=== PATIENT | male | born 1955 | race African-American/Black ===

== ENCOUNTER 2019-07-01 13:42 | Emergency (ER) | payer MEDICAID ==
[~2019-07-01] VITALS: Ht 185.4 cm; Wt 98.0 kg
[2019-07-01 17:49] VITALS: BP 149/85
== END 2019-07-01 21:41 | disposition left against medical advice (07) ==
LOC: ER 13:42
DX: Z53.21 Procedure and treatment not carried out due to patient leaving prior to being seen by health care provider (principal); E11.65 Type 2 diabetes mellitus with hyperglycemia
CPT/HCPCS: 82962